=== PATIENT | female | born 1980 | race Caucasian/White ===

== ENCOUNTER 2017-03-11 20:40 | Emergency (ER) | payer MEDICAID ==
[~2017-03-11] VITALS: Ht 149.9 cm; Wt 81.6 kg
[2017-03-11 20:46] VITALS: BP_SYST 161
--- NOTE | 2017-03-11 20:48 | NUR ---
Patient to ER bed 5 to gown for evaluation. Side rails up. Report given to Yari PEPPER.
--- NOTE | 2017-03-11 20:56 | NUR ---
NIECY Fagan aware of abnormal vital signs.
--- NOTE | 2017-03-11 21:00 | NUR ---
ER MD Fagan at bedside for evaluation
[2017-03-11] MEDS ORDERED: ALBUTEROL SULFATE 0.083% 2.5 MG/3 ML VIAL.NEB INH ONE ×2 (21:15→21:24)
[2017-03-11] MEDS ORDERED: IPRATROPIUM BROM 0.5 MG/2.5 ML VIAL.NEB (ATROVENT) INH ONE ×2 (21:15→21:24)
[2017-03-11] MEDS ORDERED: ACETAMINOPHEN 500 MG TABLET PO ONE (21:15)
[2017-03-11] MEDS ORDERED: LORazepam 2 MG/ML VIAL (FOR ER USE) IM ONE (21:15)
[2017-03-11 21:19] LABS: BILIRUBIN,URINE NEGATIVE (NEGATIVE); BLOOD, URINE NEGATIVE (NEGATIVE); CLARITY/URINE CLEAR (CLEAR); COLOR,URINE YELLOW (YELLOW); GLUCOSE,URINE NEGATIVE (NEGATIVE); KETONES,URINE NEGATIVE (NEGATIVE); LEUKOCYTE ESTERASE ,URINE NEGATIVE (NEGATIVE); NITRITE, URINE NEGATIVE (NEGATIVE); PROTEIN URINE NEGATIVE (NEGATIVE); UROBILINOGEN,URINE 0.2 (0.2-1.0)
--- NOTE | 2017-03-11 21:26 | NUR ---
PT C/O BACK PAIN 05/07 WHEN SHE MOVES THAT RADIATES TO HER ABDOMEN, THAT STARTED WHILE SHE WAS AT WORK. SHE STATES WHEN SHE DOESN'T MOVE THE PAIN GOES AWAY, BUT RIGHT WHEN SHE MOVES SHE FEELS THE PAIN.
[2017-03-11 21:36] LABS: BASOPHILS % (AUTO) 0.3 % (0.0-2.0); EOSINOPHILS # (AUTO) 0.2 K/uL (0.0-0.4); EOSINOPHILS % (AUTO) 1.8 % (0.0-4.0); HEMATOCRIT 35.4 % (36-48); HEMOGLOBIN 11.7 g/dL (12.0-16.0); LYMPHOCYTES # (AUTO) 2.6 K/uL (1.0-5.5); LYMPHOCYTES % (AUTO) 27.5 % (20.5-51.5); MEAN CORPUSCULAR HEMOGLOBIN 24 pg (27-31); MEAN CORPUSCULAR HGB CONC 33 % (32-36); MEAN CORPUSCULAR VOLUME 73 fL (79.0-98.0); MONOCYTES # (AUTO) 0.6 K/uL (0.0-1.0); MONOCYTES % (AUTO) 6.7 % (1.7-9.3); NEUTROPHILS # (AUTO) 6.2 K/uL (1.8-7.7); NEUTROPHILS % (AUTO) 63.7 % (40.0-70.0); PLATELET COUNT (AUTO) 307 K/uL (130-430); RED BLOOD CELL COUNT(AUTO) 4.86 MIL/uL (4.2-6.2); RED CELL DISTRIBUTION WIDTH 15.9 % (9.0-15.0); WHITE BLOOD COUNT (AUTO) 9.6 K/uL (4.8-10.8)
[2017-03-11 21:40] LABS: CALCIUM 8.7 mg/dL (8.4-11.0); CREATININE 0.83 mg/dL (0.55-1.30); POTASSIUM 3.8 mmol/L (3.5-5.1)
[2017-03-11] MEDS ORDERED: LORazepam 2 MG/ML VIAL ONE (21:45)
[2017-03-11] MEDS ORDERED: ACETAMINOPHEN 500 MG TABLET ONE (21:46)
[2017-03-11 21:47] LABS: ALBUMIN 3.8 g/dL (3.4-4.8); TOTAL BILIRUBIN 0.2 mg/dL (0.0-1.0); TOTAL PROTEIN, SERUM 7.9 g/dL (6.4-8.3)
[2017-03-11 22:02] LABS: BARBITURATE, URINE NEGATIVE (NEG <=200); BENZODIAZEPINE, URINE NEGATIVE (NEG <=150); CANNABINOID, URINE NEGATIVE (NEG <=50); COCAINE, URINE NEGATIVE (NEG <=150); METHAMPHETAMINES SCREEN,URINE POSITIVE (NEG <=500); OPIATE, URINE NEGATIVE (NEG <=100); PHENCYCLIDINE SCREEN,URINE NEGATIVE (NEG <=25); UR TRICYCLIC ANTIDEPRESSANTS NEGATIVE (NEG <=300); URINE AMPHETAMINE NEGATIVE (NEG <=500); URINE METHADONE NEGATIVE (NEG <=200); URINE OXYCODONE SCREEN NEGATIVE (NEG <=100); URINE PROPOXYPHENE SCREEN NEGATIVE (NEG <=300)
[2017-03-11 22:41] VITALS: BP_SYST 145
--- NOTE | 2017-03-11 22:41 | NUR ---
Patient given written and verbal discharge instructions and verbalizes understanding. ER MD DR. CÁRDENAS discussed with patient the results and treatment provided. Patient in stable condition. ID arm band removed. Rx of FLEXERIL given. Patient educated on pain management and to follow up with PMD. Pain Scale 3, PT STATES PAIN IS ONLY FELT WHEN SHE MOVES AND PAIN IS TOLERABLE, AMBULATED W/ STEADY GAIT. Opportunity for questions provided and answered.
== END 2017-03-11 22:41 | disposition home or self-care (01) ==
LOC: SED 20:40
DX: M54.5 Low back pain (principal); I10 Essential (primary) hypertension
CPT/HCPCS: 36415; 80053; 80307; 81003; 81025; 85025; 94640; 96372; 99284; J2060